=== PATIENT | female | born 1975 | race Two or more races ===

== ENCOUNTER 2021-09-22 05:27 | Day surgery (SDC) | payer OTHER | END 2021-09-22 11:00 | disposition home or self-care (01) | LOC: AMB-ENDOS 05:27 | PROVIDERS: ATTEND Colon & Rectal Surgery | DX: K62.89 Other specified diseases of anus and rectum (principal); D25.0 Submucous leiomyoma of uterus; K64.8 Other hemorrhoids; Z12.11 Encounter for screening for malignant neoplasm of colon ==